=== PATIENT | female | born 1985 | race Caucasian/White ===

== ENCOUNTER 2021-11-04 15:38 | Outpatient (CLI) | payer MEDICAID, SELFPAY ==
--- NOTE | 2021-11-04 16:11 | US_ITS ---
WS: [id number] ULTRASOUND OB COMPLETE TECHNIQUE: Complete ultrasound. CLINICAL INFORMATION: SUPERVISION OF WITH INSUFFICIENT CARE COMPARISON: Cervix measures 5.8 cm FINDINGS: Single interuterine gestation is identified with cephalic presentation. Placenta is posterior fundal. Placenta grade 0. Normal amniotic fluid volume. cardiac activity: 144 BPM. AGA: 28w5d DYLON by ultrasound: 01/22/2022 Estimated weight: 1296 g., %. BDP: 6.9 cm = 27w5d HC: 27.0 cm = 29w3d AC: 24.6 cm = 28w6d FEMUR LENGTH: 5.5 cm = 29w0d Anatomic survey: Intracranial contents and lateral ventricles not well visualized and appear asymmetr ic. Suggestion of hypoechoic extra-axial fluid collection overlying the LEFT hemisphere measuring up to 15 mm on some images with mass effect on the underlying Parenchyma. Suspected dysgenesis of the un derlying hemisphere. Suggestion of a small amount of fluid in the anterior abdomen. Anatomic survey is otherwise grossly normal. Normal stomach. Kidneys and bladder are normal. Normal 3 vessel cord. Normal 3 vessel cord insertion. Normal 4 chamber heart. Normal spine. Normal posterior fossa and cisterna magna. US/US OB >= 14 weeks fetus [id number] IMPRESSION: 1. Single intrauterine with visualized cardiac activity. AGA 28w5d w ith DYLON 01/22/2022. 2. Placenta is posterior fundal. No evidence of abruption or previa. 3. Lateral ventricles not well visualized and appear asymmetric. Suggestion of hypoechoic extra-axial fluid collection overlying the LEFT hemisphere measurin g up to 15 mm on some images with mass effect on the underlying Parenchyma whic h appears abnormal. Recommend further evaluation with level 2 ultrasound and vt gh-risk medicine evaluation. 4. Small amount of fluid in the anterior abdomen. 5. growth parameters greater than 95th percentile.
== END 2021-11-04 15:39 | disposition home or self-care (01) ==
PROVIDERS: PCP Family Medicine; Visit Provider Family Medicine
DX: O09.30 Supervision of pregnancy with insufficient antenatal care, unspecified trimester (principal); O26.843 Uterine size-date discrepancy, third trimester; Z3A.28 28 weeks gestation of pregnancy
CPT/HCPCS: 76805

== ENCOUNTER 2022-02-13 07:34 | Inpatient (IN) | payer SELFPAY ==
[2022-02-13] VITALS (42 sets, daily range): BP systolic 117–158; BP diastolic 69–92; PULSE 75–102; RESP 16; TEMP 36.1–36.9
[2022-02-13 06:00] LABS: Basophils % 0.2 %; Eosinophils # 0.1 10^3/uL (0.0-0.8); Eosinophils % 0.6 %; Hematocrit 33.8 % (37.0-47.0); Hemoglobin 10.3 g/dL (11.5-15.3); Lymphocytes # 1.3 10^3/uL (0.8-4.8); Mean Corpuscular HGB Conc 30.5 g/dL (30.0-36.0); Mean Corpuscular Hemoglobin 24.1 pg (28.0-34.0); Mean Corpuscular Volume 79.2 fl (81-99); Mean Platelet Volume 11.7 fL (7.4-10.4); Monocytes # 1.1 10^3/uL (0.2-0.9); Monocytes % 6.6 %; Neutrophils # 13.61 10^3/uL (1.8-7.7); Neutrophils % 83.6 %; Nucleated Red Blood Cells % 0 %; Platelet Count 180 10^3/cmm (130-400); Red Blood Count 4.27 10^6/uL (4.1-5.3); Red Cell Distribution Width 16.3 % (12.1-15.1); White Blood Count 16.3 10^3/uL (4.0-10.0)
--- NOTE | 2022-02-13 06:13 | PM.OBGYHP ---
Providers/Chief Complaint Admitting Physician: Ila Calderon DO Primary Care Provider: Tera Daniel Chief Complaint: Delivered at home HPI FIELD STAFF History of Present Illness Marah Welsh is a 36 year old female G6 now P4206 with PMHx methamphetamine abuse, tobacco use, labor and delivery presenting after delivery at home at approx 4:30am. Delivered at 43w1d- poor dating by 3rd trimester US. She reports her contractions started at about 2am today and rapidly intensified. She and significant other tried to find a ride to the hospital, but could not find one and called EMS when contractions intensified. She reports her water broke and then a few minutes later she delivered baby while on the phone with EMS. Reports EMS arrived and delivered placenta in the ambulance. Prior to this morning she reports she had been feeling well. Reports baby has been moving well. Reports tobacco use about 1/2 ppd. Denies any other drug or alcohol use. She admits to some current dizziness. Otherwise she is feeling well. Last ate at 2am when she woke up- had some cereal and ice cream. course significant for very limited care- 1 initial visit at [facility] with Dr. Calderon and 1 [facility] visit. No follow-up after initial visits despite multiple attempts to contact patient for follow-up. US significant for abnormal intracranial contents on initial US- repeat with [facility] showed no intracranial abnormality but incomplete anatomy as well as renal pyelectasis. Repeat US was recommended however patient did not follow-up. Also significant for positive RPR with inconsistent history- reported she knew of prior syphilis infection and was treated twice with series of 3 injections- once treated by [facility] and once with [facility] in [place], [place]. However she also reported to [facility] that she was unsure of treatment. Dating is poor and based on a 3rd trimester US not c/w an unsure LMP. She reports she did not follow-up for care because of transportation issues and a couple times she was hiding out from her whom she is from. This is her first child with FOB and her relationship with FOB is good- they live together in a house in [place] She reports her other children are in foster care. Present Details : 6 Para: 6 Date of Last Menstrual Period: 05/21/21 Calculated Date of Delivery: 02/25/22 Gestational Age Based on Last Menstrual Period: 38 Dating criteria OB: based on 3rd trimester US only (LMP is uncertain and not consistent with 3rd trimester US) care: limited care Ultrasounds: abnormal US findings Abnormal OB US findings: Initial US 11/04/21: SIUP, posterior placenta, normal AFV, intracranial contents not well visualized with lateral ventricle appearance asymmetrical- hypoechoic fluid collection overlying L hemisphere with apparent mass effect, small fluid anterior abdomen EGA 28w5d with DYLON 01/22/22 Repeat US with MFM 11/11/21: Posterior grade 2 placenta, normal JARON, incomplete anatomy visualized however no anatomic abnormalities identified and no soft markers for aneuploidy identified, no appearance of extra-axial fluid collection, renal pyelectasis R kidney 6.6mm, L kidney 6.0mm Labs Blood type OB HPI: A (+) positive Rubella: Immune RPR: Positive (Titer 1:1) GBS: Unknown HBsAG: Negative Other Lab Information: HIV neg Hep C ab negative H/H Ucx negative GC/Chlam negative UDS negative on 11/03/21 Review of Systems Const: Denies: fever(s) or malaise Card: Denies: chest pain or swelling of feet/ankles Resp: Denies: dyspnea or productive cough : Reports: vaginal bleeding Skin/Breast: Reports: sores; Denies: rash or pruritus Medications/Allergies Home Medications Medication Instructions Recorded Confirmed Last Taken Type Tylenol 650 mg PO PRN PRN Mild Pain (Scale 02/13/22 02/13/22 02/12/22 22:00 History Score 1-4) Allergies Allergy/AdvReac Type Severity Reaction Status Date / Time aspirin Allergy ALGY-Difficulty Verified 02/13/22 08:32 Breathing PFSH FIELD STAFF PFSH: Medical History Methamphetamine abuse Tobacco use Surgical History History of tonsillectomy Social History Smoking and tobacco status: current every day smoker Alcohol intake: never Substance/Drug Use: former History History Other History: # 1 Delivery date: 05/25/2006 Weeks Gestation: 32 labor: yes Delivery type: Anesthesia type: local Infant Sex: Male weight: 6lbs 6oz Delivered in [place], [place] Delivery date: 01/31/2008 labor: no Delivery type: Sex: Male weight: 8lbs 11oz Delivered in [place], [place] # 3 Delivery date: 10/30/2009 labor: no Delivery type: Sex: Male weight: 10lbs 13oz Delivered in [place], [place] # 4 Delivery date: 10/10/2012 labor: no Delivery type: Infant Sex: Female weight: 6lbs 9oz Delivered in [place], [place] # 5 Delivery date: 11/09/2015 Weeks Gestation: 32 labor: yes Delivery type: Infant Sex: Male weight: 7lbs 4oz Comments: PROM Delivered in [place], [place] Care DYLON Calculator Estimated Delivery Date Method Current WG Current Estimate 01/22/22 Ultrasound #1 43w 1d Vitals/I&O/Wt Temperature Pulse Rate 83 Respiratory Rate Blood Pressure 130/89 Pulse Oximetry Oxygen Delivery Method Oxygen Flow Rate Fraction of Inspired Oxygen Physical Exam Const: COMMON NORMALS: no acute distress HENMT: TEETH & GINGIVA: Yes poor dentition Resp: COMMON NORMALS: normal respiratory effort and clear to auscultation bilaterally Cardio: COMMON NORMALS: regular rate, regular rhythm, S1 normal heart sound present, S2 normal heart sound present and No murmurs present (Cardio) GI: COMMON NORMALS: Soft to palpation and non-tender : OTHER: uterus firm and at the umbilicus, vaginal exam with bilateral abrasions and midline abrasion periclitoral- all noted to be hemostatic. No tears requiring repair. Extremity: COMMON NORMALS: no calf tenderness and no pedal edema Skin: OTHER: scattered papular lesions with pustular appearance scattered at various stages of healing. No open lesions. No s/sx infection. Data : 02/13/22 05:46 A&P Assessment and plan (1) Vaginal delivery: 36yo presenting after vaginal delivery at home at 43w1d. Vaginal bleeding decreasing, no tears requiring repair. Start IVF, post- pitocin. Routine care after recovery period. Routine vital signs. Regular diet. Encourage ambulation. Formula feeding. CBC, repeat RPR, UDS. financial services intern consult. Repeat hemagram tomorrow AM. Status: Acute (2) Poor patient attendance of care: As above, social work associate consult. Status: Acute (3) Positive urine drug screen: Positive for amphetamines- will send for confirmation. Patient denies recent use. Status: Acute (4) Positive RPR test: Attempt confirmation of treatment for syphilis- patient reports completed treatment. Repeat RPR and titer. Status: Acute Attestations Medical Necessity Statement*: Marah Welsh's hospital stay will be less than 2 midnights for vaginal delivery. Coding Level of Care Code Acute Aluminum Molding Machine Operator for g Fwd Diagnoses Vaginal delivery O80 Poor patient attendance of care O09.30 Positive urine drug screen R82.5 Positive RPR test A53.0
[2022-02-13 06:23] LABS: Amphetamines Screen Urine Positive (Negative); Barbiturates Screen Urine Negative (Negative); Benzodiazepines Screen Urine Negative (Negative); Cocaine Screen Urine Negative (Negative); Opiate Screen Urine Negative (Negative); PCP Screen Urine Negative (Negative); THC Screen Urine Negative (Negative)
--- NOTE | 2022-02-13 08:48 | PC.NURSE ---
EDC of 01/22/22 per [facility] Ultrasound makes baby 43.1weeks EDC of 02/12/22 per [facility] Ultrasound makes baby 40.1weeks Both ultrasounds were >14 weeks
--- NOTE | 2022-02-13 09:04 | PC.NURSE ---
Patient presented with Baby Boy Blaise. Patient reported that she delivered at 0433 at home on phone with EMS. Placenta delivered approx 15 min after baby with EMS present. Arrived to OB unit at 0521.
--- NOTE | 2022-02-13 17:54 | PC.NURSE ---
Lewis Ko, with [facility] Department of Family Services, is at bedside.
--- NOTE | 2022-02-13 18:00 | PC.NURSE ---
DFS at bedside per previous note.
[2022-02-13 18:14] LABS: Hematocrit 27.7 % (37.0-47.0); Hemoglobin 8.5 g/dL (11.5-15.3); Mean Corpuscular HGB Conc 30.7 g/dL (30.0-36.0); Mean Corpuscular Hemoglobin 24.5 pg (28.0-34.0); Mean Corpuscular Volume 79.8 fl (81-99); Mean Platelet Volume 13.1 fL (7.4-10.4); Platelet Count 172 10^3/cmm (130-400); Red Blood Count 3.47 10^6/uL (4.1-5.3); Red Cell Distribution Width 16.4 % (12.1-15.1)
[2022-02-13] MEDS: acetaminophen 325 mg Tablet 650 MG PO (19:53)
[2022-02-13] MEDS: docusate sodium 100 mg Capsule PO (19:53)
[2022-02-14 03:46] VITALS: BP 136/88; PULSE 84
[2022-02-14 10:47] VITALS: BP 135/100; PULSE 100
[2022-02-14 10:58] LABS: Hematocrit 29.4 % (37.0-47.0); Hemoglobin 8.7 g/dL (11.5-15.3); Mean Corpuscular HGB Conc 29.6 g/dL (30.0-36.0); Mean Corpuscular Hemoglobin 23.5 pg (28.0-34.0); Mean Corpuscular Volume 79.2 fl (81-99); Mean Platelet Volume 11.9 fL (7.4-10.4); Platelet Count 196 10^3/cmm (130-400); Red Blood Count 3.71 10^6/uL (4.1-5.3); Red Cell Distribution Width 16.2 % (12.1-15.1); White Blood Count 14.9 10^3/uL (4.0-10.0)
[2022-02-14 11:00] VITALS: RESP 16; TEMP 36.9
[2022-02-14] MEDS: acetaminophen 325 mg Tablet 650 MG PO (11:50)
[2022-02-14 12:00] VITALS: BP 139/91; PULSE 85
--- NOTE | 2022-02-14 12:06 | PM.OBGYDC ---
Discharge Providers RETAIL PRODUCT DEMO SPECIALIST Date of Admission: 02/13/22 07:34 Date of Discharge: 02/14/22 Attending Provider at Admission: Ila Calderon DO Attending Provider at Discharge: Ila Calderon DO Primary Care Provider: Tera Daniel Diagnoses at Discharge Discharge Diagnosis (1) Vaginal delivery: Status: Acute (2) Poor patient attendance of care: Status: Acute (3) Positive urine drug screen: Status: Acute (4) Positive RPR test: Status: Acute Reason for Visit Reason for Visit: Delivered at home Hospital Course Hospital Course Marah Welsh is a 36 year old female G6 now P4206 with PMHx methamphetamine abuse, tobacco use, labor and delivery presenting after delivery at home at approx 4:30am on 02/13/22. Delivered at 43w1d- poor dating by 3rd trimester US. course significant for very limited care- 1 initial visit at [facility] with Dr. Calderon and 1 [facility] visit. No follow-up after initial visits despite multiple attempts to contact patient for follow-up. US significant for abnormal intracranial contents on initial US- repeat with [facility] showed no intracranial abnormality but incomplete anatomy as well as renal pyelectasis. Repeat US was recommended however patient did not follow-up. labs significant for RPR positive- patient reported 2 courses of treatment- confirmed most recent treatment with 3 dose series in 2019 with [facility]. Repeat titer pending at time of discharge. Delivered viable male at home. Bottle formula feeding. Infant initially doing well then with cyanosis and hypoxia <24 HOL- started on CPAP and transferred to [facility]. course was significant for anemia down to Hgb of 8.5 followed by repeat Hgb of 8.7 prior to discharge. Started on iron supplementation to continue at home. Also found to have UDS positive for amphetamines- patient denies recent use. Confirmatory test was sent and pending at time of discharge. [facility] referral was made. Following delivery patient ambulated well, tolerated a normal diet without nausea or vomiting. Pain was controlled on PO medications- Tylenol only, no leg/calf pain, no calf/leg swelling, normal urination, passing gas and normal bowel movements. Vaginal bleeding minimal. control was discussed and patient prefers to research methods prior to starting something. Follow-up planned for 2 and 6 weeks . Warning signs for endometritis, pre-eclampsia, DVT/PE, mastitis were reviewed, discussed additional warning signs including increased vaginal bleeding, worsening abdominal pain. Pelvic rest and activity precautions reviewed as well. She is discharged on 02/14/22 in stable condition. Physical Exam Const: COMMON NORMALS: no acute distress HENMT: TEETH & GINGIVA: Yes poor dentition Resp: COMMON NORMALS: normal respiratory effort and clear to auscultation bilaterally AUSCULTATION: clear to auscultation bilaterally Cardio: COMMON NORMALS: regular rate, regular rhythm, S1 normal heart sound present, S2 normal heart sound present and No murmurs present (Cardio) RATE: regular rate RHYTHM: regular rhythm HEART SOUNDS: S1 normal heart sound present and S2 normal heart sound present GI: COMMON NORMALS: Soft to palpation and non-tender PALPATION: Yes Soft to palpation : OTHER: uterus firm and at the umbilicus Extremity: COMMON NORMALS: no calf tenderness and no pedal edema Skin: OTHER: scattered papular lesions with pustular appearance scattered at various stages of healing. No open lesions. No s/sx infection. History History Other History: # 1 Delivery date: 05/25/2006 Weeks Gestation: 32 labor: yes Delivery type: Anesthesia type: local Sex: Male weight: 6lbs 6oz Delivered in [place], [place] 2 Delivery date: 01/31/2008 labor: no Delivery type: Infant Sex: Male weight: 8lbs 11oz Delivered in [place], [place] 3 Delivery date: 10/30/2009 labor: no Delivery type: Sex: Male weight: 10lbs 13oz Delivered in [place], [place] # 4 Delivery date: 10/10/2012 labor: no Delivery type: Sex: Female weight: 6lbs 9oz Delivered in [place], [place] # 5 Delivery date: 11/09/2015 Weeks Gestation: 32 labor: yes Delivery type: Sex: Male weight: 7lbs 4oz Comments: PROM Delivered in [place], [place] Discharge Data Studies Completed and Pending Pending at discharge Category Date Time Status Amphetamine Confirmation, GC/M Routine Lab 02/13/22 05:59 Received RPR with Reflex to Titer Stat Lab 02/13/22 05:46 Received Laboratory Results WBC 14.9 10^3/uL (4.0-10.0) H 02/14/22 10:30 RBC 3.71 10^6/uL (4.1-5.3) L 02/14/22 10:30 Hgb 8.7 g/dL (11.5-15.3) L 02/14/22 10:30 Hct 29.4 % (37.0-47.0) L 02/14/22 10:30 MCV 79.2 fl (81-99) L 02/14/22 10:30 MCH 23.5 pg (28.0-34.0) L 02/14/22 10:30 MCHC 29.6 g/dL (30.0-36.0) L 02/14/22 10:30 RDW 16.2 % (12.1-15.1) H 02/14/22 10:30 Plt Count 196 10^3/cmm (130-400) 02/14/22 10:30 MPV 11.9 fL (7.4-10.4) H 02/14/22 10:30 Neut % (Auto) 83.6 % 02/13/22 05:46 Lymph % (Auto) 8.0 % 02/13/22 05:46 [place] % (Auto) 6.6 % 02/13/22 05:46 Eos % (Auto) 0.6 % 02/13/22 05:46 Baso % (Auto) 0.2 % 02/13/22 05:46 Neut # (Auto) 13.61 10^3/uL (1.8-7.7) H 02/13/22 05:46 Lymph # (Auto) 1.3 10^3/uL (0.8-4.8) 02/13/22 05:46 [place] # (Auto) 1.1 10^3/uL (0.2-0.9) H 02/13/22 05:46 Eos # (Auto) 0.1 10^3/uL (0.0-0.8) 02/13/22 05:46 Baso # (Auto) 0.0 10^3/uL (0.0-0.1) 02/13/22 05:46 Nucleated RBC % (auto) 0 % 02/13/22 05:46 Nucleated RBCs # 0.0 /100WBC 02/13/22 05:46 Urine Opiates Screen Negative ng/mL (Negative) 02/13/22 05:59 Ur Barbiturates Screen Negative ng/mL (Negative) 02/13/22 05:59 Ur Phencyclidine Scrn Negative ng/mL (Negative) 02/13/22 05:59 Ur Amphetamines Screen Positive ng/mL (Negative) H 02/13/22 05:59 U Benzodiazepines Scrn Negative ng/mL (Negative) 02/13/22 05:59 Urine Cocaine Screen Negative ng/mL (Negative) 02/13/22 05:59 U Marijuana (THC) Screen Negative ng/mL (Negative) 02/13/22 05:59 Vitals Temperature 98.4 F Pulse Rate 85 Respiratory Rate 16 Blood Pressure 139/91 Pulse Oximetry Oxygen Delivery Method Room Air Oxygen Flow Rate Fraction of Inspired Oxygen Discharge Plan Discharge Patient Disposition: Home Condition: Stable Prescriptions: New -U 106.5-1 mg capsule 1 cap PO DAILY Qty: 90 2RF ferrous sulfate 325 mg (65 mg iron) tablet 325 mg PO DAILY Qty: 30 0RF Continued Tylenol 650 mg PO PRN PRN (Reason: Mild Pain (Scale Score 1-4)) Discharge Orders: Discharge Order (Routine); Ordered 02/14/22 Ordered By: Ila Calderon Referrals: Ila Calderon DO [Physician] - 02/28/22 1:15 pm Discharge Diet: Usual diet Discharge Activity: Limit activity as instructed Patient Instructions: Iron Supplements (By mouth), Vitamins (By mouth) (Classic , Basic's ..., Depression (DC), Bleeding (DC), Vaginal Delivery (DC), OB Discharge Report, Opioid Safety, OB Home Care, Abnormal Bleeding Activity Restrictions/Additional Instructions: Pelvic rest for 6 weeks. Follow-up post- at 2 and 6 weeks. Discharge Attestations RETAIL PRODUCT DEMO SPECIALIST Time Spent in Discharge Care*: greater than 30 min Coding Level of Care Code Acute Map Clerk for Chg Fwd Exam Detailed Diagnoses Vaginal delivery O80 Poor patient attendance of care O09.30 Positive urine drug screen R82.5 Positive RPR test A53.0
[2022-02-14 12:17] VITALS: BP 139/91; PULSE 85
[2022-02-14 16:33] LABS: RPR w(Moniotor) w/REFL Titer REACTIVE (NON-REACTIVE)
[2022-02-22 08:12] LABS: Amphetamine negative; Methamphetamine 810 ng/mL; Methylenedioxyamphetamine negative; Methylenedioxyethylamphetamine negative; Methylenedioxymethamphetamine negative
== END 2022-02-14 12:19 | disposition home or self-care (01) | DRG 776 ==
LOC: OPOB 02-14 09:04
PROVIDERS: Admitting Provider Family Medicine; PCP Family Medicine; Visit Provider Family Medicine
DX: Z39.0 Encounter for care and examination of mother immediately after delivery (principal); O99.325 Drug use complicating the puerperium; O98.13 Syphilis complicating the puerperium; F15.90 Other stimulant use, unspecified, uncomplicated; A53.0 Latent syphilis, unspecified as early or late
CPT/HCPCS: 36415; 80306; 80324; 80359; 85025; 85027; 86592; 99211

== ENCOUNTER 2024-06-17 23:19 | Inpatient (IN) | payer SELFPAY ==
[2024-06-17 23:29] VITALS: BP 90/58; PULSE 116; RESP 20; TEMP 36.6; O2SAT 98; BMI 23.0
[2024-06-18] VITALS (16 sets, daily range): BP systolic 90–117; BP diastolic 51–74; PULSE 69–114; RESP 16–25; TEMP 37–37.2; O2SAT 95–98; BMI 22.8
[2024-06-18 00:13] LABS: Basophils # 0.1 10^3/uL (0.0-0.1); Basophils % 0.3 %; Eosinophils % 0.2 %; Hematocrit 42.6 % (36-47); Lymphocytes # 0.9 10^3/uL (0.8-4.8); Mean Corpuscular HGB Conc 33.6 g/dL (30-55); Mean Corpuscular Hemoglobin 29.3 pg (27-33); Mean Corpuscular Volume 87.3 fl (85-98); Mean Platelet Volume 10.5 fL (7.4-10.4); Monocytes # 1.3 10^3/uL (0.2-0.9); Monocytes % 5.3 %; Neutrophils # 21.07 10^3/uL (1.8-7.7); Neutrophils % 88.6 %; Nucleated Red Blood Cells % 0 %; Platelet Count 199 10^3/cmm (157-399); Red Blood Count 4.88 10^6/uL (3.85-5.65); Red Cell Distribution Width 12.7 % (12.1-15.1); White Blood Count 23.78 10^3/uL (3.29-11.43)
[2024-06-18 00:30] LABS: Alanine Aminotransferase 24 U/L (0-33); Albumin Level 3.7 g/dL (3.5-5.2); Alkaline Phosphatase 69 U/L (35-105); Anion Gap 14.8 (5-19); Aspartate Amino Transferase 17 U/L (0-32); Blood Urea Nitrogen 11 mg/dL (6-20); Calcium 9.1 mg/dL (8.5-10.5); Carbon Dioxide 26 mmol/L (22-29); Chloride 91 mmol/L (98-107); Creatinine Clr Calc Pharmacy 96.5153; Globulin 3.9 g/dL (1.3-4.6); Glomerular Filtration Rate 94.7 mL/min (90-130); Glucose 109 mg/dL (65-115); Osmolality Calculated 266 mOsm/kg (285-295); Potassium 3.8 mmol/L (3.5-5.1); Sodium 128 mmol/L (136-145); Total Bilirubin 0.9 mg/dL (0.15-1.2); Total Protein 7.6 g/dL (6.6-8.7)
[2024-06-18 01:05] LABS: Procalcitonin 2.78 ng/mL (0-0.5)
[2024-06-18 01:25] LABS: HCG, Serum Qual Negative (Negative)
[2024-06-18 01:26] LABS: Covid PCR NEGATIVE (Negative); Influenza A NEGATIVE (Negative); Influenza B NEGATIVE (Negative); Respiratory Syncytial Virus Ce NEGATIVE (Negative)
--- NOTE | 2024-06-18 01:36 | XRR_ITS ---
PROCEDURE INFORMATION: Exam: XR Chest Exam date and time: 06/18/2024 1:49 AM Age: 38 years old Clinical indication: Cough and fever and wheezing; Smoker's cough; Additional info: Septic TECHNIQUE: Imaging protocol: Radiologic exam of the chest. Views: 1 view. COMPARISON: No relevant prior studies available. FINDINGS: Lungs: There is hazy airspace opacity in the retrocardiac region Pleural spaces: Unremarkable. No pleural effusion. No pneumothorax. Heart/Mediastinum: Unremarkable. No cardiomegaly. Bones/joints: Unremarkable. XR/XR chest 1V portable [id number] IMPRESSION: Hazy opacity in the retrocardiac region, concerning for pneumonia. Clinical correlation recommended.
--- NOTE | 2024-06-18 01:46 | ED_ITS ---
HPI - Fever 2 General: Chief Complaint: Fever Stated Complaint: Fever\Cough Time Seen by Provider: 06/18/24 01:34 History of Present Illness: Patient presents to the ER after having cough body aches and weakness, she has had a cough for about 4 days she has had fever body aches and weakness for about 2 days. She has been around sick family members. She took Tylenol about an hour ago. Heart rate is 116 bpm. Related Data Home Medications Medication Instructions Recorded Confirmed Tylenol 650 mg PO PRN PRN Mild Pain (Scale 02/13/22 02/13/22 Score 1-4) Previous Rx's Medication Instructions Recorded ferrous sulfate 325 mg (65 mg 325 mg PO DAILY #30 tabs 02/14/22 iron) tablet multivitamin no.51-ferrous 1 cap PO DAILY #90 caps 02/14/22 fumarate 106.5 mg-folic acid 1 mg capsule (-U) Allergies Allergy/AdvReac Type Severity Reaction Status Date / Time aspirin Allergy ALGY-Difficulty Verified 06/17/24 23:34 Breathing Review of Systems 2 General: Reports: 10 or more systems reviewed and unremarkable except in HPI and below PFSH ED 2 PFSH: Medical History Tobacco use Methamphetamine abuse Surgical History History of tonsillectomy Social History Smoking and tobacco/nicotine status: current every day tobacco/nicotine user Alcohol intake: never Substance/Drug Use: former Physical Exam 2 Const: COMMON NORMALS: no acute distress, average body habitus, patient oriented x3, no limitations, healthy appearing, alert and well nourished HENMT: COMMON NORMALS: normocephalic, atraumatic, hearing grossly normal bilaterally, external ears normal, Normal external nose present and moist oral mucous membranes HEAD & SCALP: normocephalic and atraumatic NOSE: Normal external nose present EXTERNAL EAR: Yes external ears normal Neck/C-Spine: COMMON NORMALS: no JVD Chest: COMMONS NORMALS: normal palpation of entire chest wall Resp: COMMON NORMALS: normal respiratory effort, No retractions, No use of accessory muscles and clear to auscultation bilaterally AUSCULTATION: clear to auscultation bilaterally Cardio: COMMON NORMALS: no JVD, regular rhythm, S1 normal heart sound present, S2 normal heart sound present, No clicks present (Cardio) and No murmurs present (Cardio); negative for regular rate (Tachycardic) RATE: abnormal rate (Tachycardic) RHYTHM: regular rhythm HEART SOUNDS: S1 normal heart sound present and S2 normal heart sound present GI: COMMON NORMALS: Normal to inspection, nondistended, normoactive bowel sounds present, Soft to palpation, non-tender, No hepatosplenomegaly present and no masses PALPATION: Yes Soft to palpation and Yes No hepatosplenomegaly present Neuro: COMMON NORMALS: patient oriented x3 SENSORIUM/ORIENTATION: Yes alert Course 2 Vital Signs: Vital signs: Vital Signs Temperature 97.8 F 06/17/24 23:29 Pulse Rate 102 H 06/18/24 04:30 Respiratory Rate 23 H 06/18/24 02:33 Blood Pressure 98/74 06/18/24 04:30 Pulse Oximetry 98 06/18/24 04:30 Oxygen Delivery Me thod Room Air 06/18/24 01:33 MDM - Fever Medical Decision Making Patient's white count 23.78, sodium 128, initial lactic acid 4.0, repeat lactic acid 3.0 after 30 mL/kg fluid bolus and 3.375 g of Zosyn. Chest x-ray showed possible pneumonia in retrocardiac region, CT scan showed definite pneumonia in this area. Patient was discussed with Dr. Brown who agreed to place patient inpatient for further treatment. Medical Records I reviewed the patient's medical records. Lab Data I reviewed the patient's lab results. 06/17/24 23:53 06/17/24 23:53 Radiology Impressions Chest X-Ray 06/18/24 01:36 IMPRESSION: Hazy opacity in the retrocardiac region, concerning for pneumonia. Clinical correlation recommended. Laboratory Results WBC 23.78 10^3/uL (3.29-11.43) H 06/17/24 23:53 RBC 4.88 10^6/uL (3.85-5.65) 06/17/24 23:53 Hgb 14.30 g/dL (11.27-16.99) 06/17/24 23:53 Hct 42.6 % (36-47) 06/17/24 23:53 MCV 87.3 fl (85-98) 06/17/24 23:53 MCH 29.3 pg (27-33) 06/17/24 23:53 MCHC 33.6 g/dL (30-55) 06/17/24 23:53 RDW 12.7 % (12.1-15.1) 06/17/24 23:53 Plt Count 199 10^3/cmm (157-399) 06/17/24 23:53 MPV 10.5 fL (7.4-10.4) H 06/17/24 23:53 Neut % (Auto) 88.6 % 06/17/24 23:53 Lymph % (Auto) 4.0 % 06/17/24 23:53 Guthrie % (Auto) 5.3 % 06/17/24 23:53 Eos % (Auto) 0.2 % 06/17/24 23:53 Baso % (Auto) 0.3 % 06/17/24 23:53 Neut # (Auto) 21.07 10^3/uL (1.8-7.7) H 06/17/24 23:53 Lymph # (Auto) 0.9 10^3/uL (0.8-4.8) 06/17/24 23:53 Guthrie # (Auto) 1.3 10^3/uL (0.2-0.9) H 06/17/24 23:53 Eos # (Auto) 0.0 10^3/uL (0.0-0.8) 06/17/24 23:53 Baso # (Auto) 0.1 10^3/uL (0.0-0.1) 06/17/24 23:53 Nucleated RBC % (auto) 0 % 06/17/24 23:53 Nucleated RBCs # 0.0 /100WBC 06/17/24 23:53 Sodium 128 mmol/L (136-145) L 06/17/24 23:53 Potassium 3.8 mmol/L (3.5-5.1) 06/17/24 23:53 Chloride 91 mmol/L (98-107) L 06/17/24 23:53 Carbon Dioxide 26 mmol/L (22-29) 06/17/24 23:53 Anion Gap 14.8 (5-19) 06/17/24 23:53 BUN 11 mg/dL (6-20) 06/17/24 23:53 Creatinine 0.7 mg/dL (0.5-0.9) 06/17/24 23:53 GFR Calculation 94.7 mL/min (90-130) 06/17/24 23:53 Glucose 109 mg/dL (65-115) 06/17/24 23:53 Calculated Osmolality 266 mOsm/kg (285-295) L 06/17/24 23:53 Lactic Acid 4.0 mmol/L (0.5-2.2) H 06/17/24 23:53 Lactic Acid (Sepsis) 3.0 mmol/L (0.5-2.2) H 06/18/24 02:55 Calcium 9.1 mg/dL (8.5-10.5) 06/17/24 23:53 Total Bilirubin 0.9 mg/dL (0.15-1.2) 06/17/24 23:53 AST 17 U/L (0-32) 06/17/24 23:53 ALT 24 U/L (0-33) 06/17/24 23:53 Alkaline Phosphatase 69 U/L (35-105) 06/17/24 23:53 Total Protein 7.6 g/dL (6.6-8.7) 06/17/24 23:53 Albumin 3.7 g/dL (3.5-5.2) 06/17/24 23:53 Globulin 3.9 g/dL (1.3-4.6) 06/17/24 23:53 Procalcitonin 2.78 ng/mL (0-0.5) H 06/17/24 23:53 HCG, Qual Negative (Negative) 06/17/24 23:53 Urine Color Yellow (Yellow) 06/18/24 01:30 Urine Appearance Clear (CLEAR) 06/18/24 01:30 Urine pH 5.5 (5-7) 06/18/24 01:30 Ur Specific [place] 1.018 (1.005-1.030) 06/18/24 01:30 Urine Protein Trace (Negative) A 06/18/24 01:30 Urine Glucose (UA) Negative (Normal) 06/18/24 01:30 Urine Ketones Negative (Negative) 06/18/24 01:30 Urine Blood Negative (Negative) 06/18/24 01:30 Urine Nitrate Negative (Negative) 06/18/24 01:30 Urine Bilirubin Negative (Negative) 06/18/24 01:30 Urine Urobilinogen 1.0 mg/dL (Negative) 06/18/24 01:30 Ur Leukocyte Esterase Negative (Negative) 06/18/24 01:30 Urine RBC 0-2 /hpf (0-2) 06/18/24 01:30 Urine WBC 0-5 /hpf (0-5) 06/18/24 01:30 Ur Squamous Epith Cells 0-5 /hpf (0-5) 06/18/24 01:30 Amorphous Sediment Not Reportable 06/18/24 01:30 Urine Bacteria None seen /hpf (NONE) 06/18/24 01:30 Hyaline Casts 11.97 /lpf 06/18/24 01:30 Urine Opiates Screen Negative ng/mL (Negative) 06/18/24 01:30 Ur Barbiturates Screen Negative ng/mL (Negative) 06/18/24 01:30 Ur Phencyclidine Scrn Negative ng/mL (Negative) 06/18/24 01:30 Ur Amphetamines Screen Negative ng/mL (Negative) 06/18/24 01:30 U Benzodiazepines Scrn Negative ng/mL (Negative) 06/18/24 01:30 Urine Cocaine Screen Negative ng/mL (Negative) 06/18/24 01:30 U Marijuana (THC) Screen Negative ng/mL (Negative) 06/18/24 01:30 Coronavirus (PCR) Negative (Negative) 06/18/24 00:34 Influenza A (PCR) Negative (Negative) 06/18/24 00:34 Influenza Type B (PCR) Negative (Negative) 06/18/24 00:34 RSV (PCR) Negative (Negative) 06/18/24 00:34 All radiology interpretation(s) finalized by discharge Discharge Plan Discharge Patient Disposition: Admitted As Inpatient Clinical Impression: Pneumonia Qualifiers: Pneumonia type: due to unspecified organism Laterality: left Lung location: l ower lobe of lung Qualified Code(s): J18.9 - Pneumonia, unspecified organism Sepsis Qualifiers: Sepsis type: sepsis due to unspecified organism Sepsis acute organ dysfunction status: without acute organ dysfunction Qualified Code(s): A41.9 - Sepsis, unspecified organism Condition: Stable Coding Level of Care Code 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
[2024-06-18 01:48] LABS: Bilirubin Urine Negative (Negative); Blood Urine Negative (Negative); Glucose Urine UA Negative (Normal); Ketones Urine Negative (Negative); Leukocyte Esterase Urine Negative (Negative); Nitrate Urine Negative (Negative); Protein Urine Trace (Negative); Specific Gravity, Urine 1.018 (1.005-1.030); Urine Appearance Clear (CLEAR); Urine Color Yellow (Yellow); pH Urine 5.5 (5-7)
[2024-06-18 01:52] LABS: Add Urine Microscopic? YES; Bacteria Urine None Seen /hpf; Hyaline Casts Urine 11.97 /lpf; RBC Urine 0-2 /hpf (0-2); Squamous Epithelial Cell Urine 0-5 /hpf (0-5); WBC Urine 0-5 /hpf (0-5)
[2024-06-18] MEDS: piperacillin-tazobactam 3.375 GM in sodium chloride 0.9% (plus) 50 ML IV (01:55)
[2024-06-18] MEDS: LACTATED RINGERS 1769.01 ML IV (01:57)
[2024-06-18 02:07] LABS: UA Slide Review UA Slide Review Perf
[2024-06-18 02:24] LABS: Reflex Lactate Order REFLEX LACTIC ORDERD
--- NOTE | 2024-06-18 03:44 | CTR_ITS ---
PROCEDURE INFORMATION: Exam: CT Chest With Contrast; Diagnostic Exam date and time: 06/18/2024 3:58 AM Age: 38 years old Clinical indication: Fever and nausea; Smoker's cough; Additional info: Leukocytosis, sepsis, weakness, tachycardia TECHNIQUE: Imaging protocol: Diagnostic computed tomography of the chest with contrast. Radiation optimization: All CT scans at this facility use at least one of these dose optimization techniques: automated exposure control; mA and/or kV adjustment per patient size (includes targeted exams where dose is matched to clinical indication); or iterative reconstruction. Contrast material: OMNI 350; Contrast volume: 100 ml; Contrast route: INTRAVENOUS (IV); COMPARISON: CR (CHEST, ) 06/18/2024 1:49 AM RADIATION DOSE METRICS: Total DLP (mGy-cm): 206.1 FINDINGS: Lungs: Left lower lobe consolidation. Pleural spaces: Unremarkable. No pneumothorax. No pleural effusion. Heart: Unremarkable. No cardiomegaly. No pericardial effusion. Lymph nodes: Unremarkable. No enlarged lymph nodes. Vasculature: Unremarkable. No aortic aneurysm. Bones/joints: Unremarkable. No acute fracture. Soft tissues: Unremarkable. PROCEDURE INFORMATION: Exam: CT Abdomen And Pelvis With Contrast Exam date and time: 06/18/2024 3:58 AM Age: 38 years old Clinical indication: Fever and nausea; Smoker's cough; Additional info: Leukocytosis, sepsis, weakness, tachycardia TECHNIQUE: Imaging protocol: Computed tomography of the abdomen and pelvis with contrast. Radiation optimization: All CT scans at this facility use at least one of these dose optimization techniques: automated exposure control; mA and/or kV adjustment per patient size (includes targeted exams where dose is matched to clinical indication); or iterative reconstruction. Contrast material: OMNI 350; Contrast volume: 100 ml; Contrast route: INTRAVENOUS (IV); COMPARISON: US OB >= 14 weeks fetus [id number] 11/04/2021 4:16 RADIATION DOSE METRICS: Total DLP (mGy-cm): 371 FINDINGS: Lungs: Lung bases are clear as visualized. Heart: Base of heart is unremarkable as visualized. Liver: Normal. No mass. Gallbladder and biliary ducts: Cholelithiasis. Mildly prominent gallbladder. Pancreas: Normal. No ductal dilation. Spleen: Normal. No splenomegaly. Adrenal glands: Normal. No mass. Kidneys and ureters: Bilateral renal cortical hypodensities too small to characterize by modality, statistically likely to represent benign findings. Stomach and bowel: [id number] colonic stool burden. Appendix: No evidence of appendicitis. Intraperitoneal space: Unremarkable. No free air. No significant fluid collection. Vasculature: Unremarkable. No abdominal aortic aneurysm. Lymph nodes: Unremarkable. No enlarged lymph nodes. Urinary bladder: Unremarkable as visualized. Reproductive: Unremarkable as visualized. Bones/joints: Unremarkable. No acute fracture. Soft tissues: Unremarkable. CT/CT chest abdpel w/*[id number] IMPRESSION: Left lower lobe consolidation concerning for pneumonia. IMPRESSION: Cholelithiasis in the setting of prominent gallbladder. Recommend right upper quadrant ultrasound for further assessment, clinically correlate with biliary dysfunction. COMMENTS: Consistent with the [employer]'s Incidental Findings Committee white paper (J Am Sherrie Radiol 2018): Any incidental renal lesion less than 1 cm or classified as too small to characterize, or any incidental cystic renal lesion characterized as simple-appearing, is likely benign. No follow-up imaging is recommended for these lesions per consensus recommendations based on imaging criteria.
[2024-06-18 04:01] LABS: Amphetamines Screen Urine Negative (Negative); Barbiturates Screen Urine Negative (Negative); Benzodiazepines Screen Urine Negative (Negative); Cocaine Screen Urine Negative (Negative); Opiate Screen Urine Negative (Negative); PCP Screen Urine Negative (Negative); THC Screen Urine Negative (Negative)
[2024-06-18] MEDS: iohexol 350 mg/mL 500 mL Btl (per mL) IV (04:01)
--- NOTE | 2024-06-18 04:55 | P.HP_ITS ---
Providers/Chief Complaint 2 Chief Complaint: Fever\Cough History of Present Illness Marah Welsh is a 38 year old female with a past medical history significant for tobacco use disorder and methamphetamine use disorder who presents to the emergency department with fevers, chills, and cough x 3 days. She endorses associated generalized weakness and fatigue. Exertion worsens symptoms. She reports she took Tylenol prior to presentation. Denies other alleviating or aggravating factors. She describes her cough is productive. She does endorse recent sick contacts. Reports she is active tobacco smoker but has not smoked in a couple of days to her due to her symptomatology. In the emergency department, patient was found to be tachycardic and tachypneic. Labs reveal marked leukocytosis, hypotonic hyponatremia, lactic acidosis, elevated procalcitonin and negative RSV/COVID/flu swab. Imaging showed hazy capacity retrocardiac region on plain film per radiology read. CT chest abdomen pelvis obtained with radiology read pending. Per my read there is significant dense pneumonia in the left lung, mostly retrocardiac. Patient does endorse a history of childhood pneumonia. Review of Systems 2 Narrative: A complete review of systems was obtained and is negative except as stated in HPI. Medications/Allergies Home Medications Medication Instructions Recorded Confirmed Last Taken Type Tylenol 650 mg PO PRN PRN Mild Pain (Scale 02/13/22 02/13/22 02/12/22 22:00 History Score 1-4) ferrous sulfate 325 mg (65 mg 325 mg PO DAILY #30 tabs 02/14/22 Unknown Rx iron) tablet multivitamin no.51-ferrous 1 cap PO DAILY #90 caps 02/14/22 Unknown Rx fumarate 106.5 mg-folic acid 1 mg capsule (-U) Allergies Allergy/AdvReac Type Severity Reaction Status Date / Time aspirin Allergy ALGY-Difficulty Verified 06/17/24 23:34 Breathing PFSH Acute 2 PFSH: Medical History (Updated 06/18/24 @ 05:17 by Tera Brown MD) Positive urine drug screen Poor patient attendance of care Vaginal delivery Tobacco use Methamphetamine abuse Surgical History History of tonsillectomy Family History Mother Cervical cancer Social History Smoking and tobacco/nicotine status: current every day tobacco/nicotine user Alcohol intake: never Substance/Drug Use: former Vitals/I&O/Wt Last Vital Signs Temp 97.8 F 06/17/24 23:29 Pulse 102 H 06/18/24 04:30 Resp 23 H 06/18/24 02:33 BP 98/74 06/18/24 04:30 Pulse Ox 98 06/18/24 04:30 O2 Del Method Room Air 06/18/24 01:33 Weight last 48 hrs Weight 58.967 kg Physical Exam 2 Narrative: General: Patient is awake ill-appearing. Head: Normocephalic. Atraumatic. EOM intact. Poor dentition. Dry mucous membranes. Neck: No JVD. Cardiovascular: No gallops. No murmurs. No peripheral edema. Regular rhythm. Tachycardic. Lungs: Productive cough present on exam. Faint rhonchi in left lung. Tachypneic. Conversational dyspnea. Skin: No jaundice. No rashes. Abdomen: Normal bowel sounds, abdomen soft and nontender. Genito Urinary: Genital exam not performed since complaints not related. Rectal: Rectal exam not performed since no symptoms indicated blood loss. Extremities: No cyanosis or clubbing. Musculoskeletal: No swollen or erythematous joints. Neurological: Moves all 4 extremities. No myoclonus. Data 06/17/24 23:53 06/17/24 23:53 Micro: Microbiology 06/18/24 01:39 Blood Culture - Preliminary Blood SPECIMEN COLLECTED 06/18/24 01:42 Blood Culture - Preliminary Blood SPECIMEN COLLECTED A&P Assessment and plan (1) Sepsis: Sepsis secondary to left-sided community acquired pneumonia with lactic acidosis Blood cultures x 2 Status post sepsis bolus of IV fluids in ED Telemetry Strict I's and O's Procalcitonin 2.78 Bacterial antigens and sputum culture ordered Start cefepime Start vancomycin, pharmacy to dose MRSA nasal screening requested Qualifiers: Sepsis acute organ dysfunction status: without acute organ dysfunction Sepsis type: sepsis due to unspecified organism Qualified Code(s): A41.9 - Sepsis, unspecified organism (2) Community acquired pneumonia: Workup and treatment as above (3) Hyponatremia: Hypovolemic hyponatremia secondary to sepsis Status post IV fluid resuscitation ED Encourage oral intake Repeat labs in a.m. (4) Lactic acidosis: Lactic acidosis secondary to sepsis Treat underlying sepsis IV fluids and antibiotics as noted above Trend lactate (5) Tobacco use: Patient reports she quit swelling about 2 days ago due to acute illness We discussed smoking cessation counseling for 3 minutes She appears to be in the precontemplation stage Patient declines nicotine replacement therapy at this time Plan DVT prophylaxis: Lovenox CODE STATUS: Full code Attestations 2 Medical Necessity Statement*: The patient presents with multiple symptoms, found to have sepsis with community-acquired pneumonia with expected hospitalization to cross 2 midnights for which she will be placed to inpatient status for blood culture surveillance, IV antibiotics, IV fluids telemetry, and supportive care. Coding Level of Care Code Acute Code for [facility] Fwd Diagnoses Sepsis A41.9 Sepsis acute organ dysfunction status: without acute organ dysfunction Sepsis type: sepsis due to unspecified organism Community acquired pneumonia J18.9 Hyponatremia E87.1 Lactic acidosis E87.20 Tobacco use Z72.0
[2024-06-18] MEDS: cefepime 2,000 mg SDV 2000 MG IVP ×3 (05:21→22:02)
--- NOTE | 2024-06-18 05:22 | USR_ITS ---
PROCEDURE INFORMATION: Exam: US Abdomen; Limited Exam date and time: 06/18/2024 5:48 AM Age: 38 years old Clinical indication: Abnormal findings; Abnormal radiologic finding of the abdomen; Radiologic exam and body structure: CT; Additional info: Abnormal CT imaging of gb TECHNIQUE: Imaging protocol: Real time ultrasound of the abdomen with image documentation. Limited exam focused on the region of clinical interest. COMPARISON: CT chest abdpel w/*[id number] 06/18/2024 3:58 AM FINDINGS: Liver: Visualized liver is unremarkable. Gallbladder: Multiple gallstones. No inflammatory change. No wall thickening. Biliary ducts: Normal caliber of the common biliary duct. Pancreas: Cursory reviews of the pancreas appear unremarkable. Right kidney: Visualized right kidneys unremarkable. Aorta: Cursory reviews of the aorta are unremarkable. Portal venous: Portal vein is patent. US/US gall bladder [id number] IMPRESSION: Cholelithiasis without convincing evidence for cholecystitis.
[2024-06-18] MEDS: acetaminophen 325 mg Tablet 650 MG PO ×3 (05:33→18:01)
[2024-06-18 05:46] LABS: C Reactive Protein 248.6 mg/L (0.0-4.9)
[2024-06-18 06:49] LABS: MRSA PCR OZH (swab) NOT DETECTED (Not Detecte)
--- NOTE | 2024-06-18 11:47 | PC.NURSE ---
PT REQUESTED FOR BOYFRIEND TRISH TO BE NOTIFIED OF ANY UPDATES D/T HER NOT HAVING A CELL PHONE; [phone].
--- NOTE | 2024-06-18 16:09 | P.PN_ITS ---
Subjective 2 Subjective: All patient feeling much better this afternoon. She remains tired and overall weak but feeling better trying to howe off any further fever or bodyaches Please note the patient has been clean for 2-1/2 months from methamphetamines. Vitals/I&O/Wt Last Vital Signs Temp 98.9 F 06/18/24 13:11 Pulse 86 06/18/24 15:32 Resp 17 06/18/24 11:17 BP 107/55 06/18/24 15:32 Pulse Ox 97 06/18/24 15:32 O2 Del Method Room Air 06/18/24 15:19 06/18/24 06/18/24 06/18/24 06:59 14:59 22:59 Intake Total 1818.1818. Balance 1818. Weight last 48 hrs Weight 61.235 kg Weight 58.967 kg Physical Exam 2 Narrative: Mild to moderately ill-appearing white female in mild distress. Patient has multiple hypopigmented areas over her arms related to prior drug use no signs of infection no rash Neuro alert and oriented to person place time and situation patient is nonfocal HEENT head is normocephalic atraumatic pupils reactive to light and accommodation extraocular muscles are intact there is no scleral icterus Patient has severely poor dentition as would be expected from methamphetamine abuse Neck is supple no JVD carotid bruits or lymphadenopathy Heart is regular normal S1-S2 without murmurs clicks gallops or rubs Lungs are diminished throughout worse on the left no specific rhonchi auscultated Abdomen flat soft nontender nondistended positive bowel sounds no hepatosplenomegaly Extremities no clubbing cyanosis or edema Back no scoliosis or kyphosis no CVA tenderness Psych mood and affect are appropriate Data 06/17/24 23:53 06/17/24 23:53 Micro: Microbiology 06/18/24 01:30 Bacterial Antigens - Final Urine,Clean Catch 06/18/24 01:39 Blood Culture - Preliminary Blood SPECIMEN COLLECTED 06/18/24 01:42 Blood Culture - Preliminary Blood SPECIMEN COLLECTED A&P Assessment and plan (1) Sepsis: Sepsis secondary to left-sided community acquired pneumonia with lactic acidosis Follow-up on blood cultures when available Continue IV fluids Procalcitonin 2.78 Bacterial antigens and sputum culture ordered Continue cefepime and vancomycin for now. Plan to de-escalate quickly MRSA nasal screening requested Qualifiers: Sepsis acute organ dysfunction status: without acute organ dysfunction Sepsis type: sepsis due to unspecified organism Qualified Code(s): A41.9 - Sepsis, unspecified organism (2) Community acquired pneumonia: Workup and treatment as above (3) Hyponatremia: Hypovolemic hyponatremia secondary to sepsis Continue with IV hydration Encourage oral intake Follow chemistries (4) Lactic acidosis: Lactic acidosis secondary to sepsis Treat underlying sepsis IV fluids and antibiotics as noted above (5) Tobacco use: Patient reports she quit smoking about 2 days ago due to acute illness Plan DVT prophylaxis: Lovenox CODE STATUS: Full code Attestations 2 Medical Necessity Statement*: The patient presents with multiple symptoms, found to have sepsis with community-acquired pneumonia with expected hospitalization to cross 2 midnights for which she will be placed to inpatient status for blood culture surveillance, IV antibiotics, IV fluids telemetry, and supportive care. Coding Level of Care Code Acute Code for [facility] Diagnoses Sepsis A41.9 Sepsis acute organ dysfunction status: without acute organ dysfunction Sepsis type: sepsis due to unspecified organism Community acquired pneumonia J18.9 Hyponatremia E87.1 Lactic acidosis E87.20 Tobacco use Z72.0
[2024-06-18] MEDS: sodium chloride 0.9% 1,000 ML 100 ML IV (18:03)
[2024-06-18] MEDS: ipratropium-albuterol 3 mL Neb INHALATION (20:46)
[2024-06-18] MEDS: ibuprofen 600 mg Tablet PO (22:02)
[2024-06-18] MEDS: enoxaparin 40 mg/0.4 mL Syringe SUBCUT (22:02)
[2024-06-19] VITALS (8 sets, daily range): BP systolic 91–107; BP diastolic 53–69; PULSE 62–84; RESP 15–18; TEMP 36.4–36.6; O2SAT 98–100
[2024-06-19] MEDS: ipratropium-albuterol 3 mL Neb INHALATION ×3 (00:32→07:39)
[2024-06-19] MEDS: sodium chloride 0.9% 1,000 ML 100 ML IV (04:13)
[2024-06-19 05:16] LABS: Basophils % 0.4 %; Eosinophils # 0.1 10^3/uL (0.0-0.8); Eosinophils % 1.3 %; Hematocrit 34.6 % (36-47); Lymphocytes # 1.2 10^3/uL (0.8-4.8); Lymphocytes % 12.5 %; Mean Corpuscular HGB Conc 32.1 g/dL (30-55); Mean Corpuscular Hemoglobin 29.3 pg (27-33); Mean Corpuscular Volume 91.3 fl (85-98); Mean Platelet Volume 10.5 fL (7.4-10.4); Monocytes # 0.8 10^3/uL (0.2-0.9); Monocytes % 8.2 %; Neutrophils # 7.61 10^3/uL (1.8-7.7); Neutrophils % 76.7 %; Nucleated Red Blood Cells % 0 %; Platelet Count 169 10^3/cmm (157-399); Red Blood Count 3.79 10^6/uL (3.85-5.65); Red Cell Distribution Width 12.9 % (12.1-15.1); White Blood Count 9.92 10^3/uL (3.29-11.43)
[2024-06-19 05:41] LABS: Anion Gap 11.4 (5-19); Blood Urea Nitrogen 9 mg/dL (6-20); Calcium 8.6 mg/dL (8.5-10.5); Carbon Dioxide 27 mmol/L (22-29); Chloride 103 mmol/L (98-107); Creatinine Clr Calc Pharmacy 170.0718; Glomerular Filtration Rate 180.6 mL/min (90-130); Glucose 90 mg/dL (65-115); Magnesium 1.9 mg/dL (1.7-2.3); Osmolality Calculated 284 mOsm/kg (285-295); Phosphorus 1.7 mg/dL (2.5-4.5); Potassium 3.4 mmol/L (3.5-5.1); Sodium 138 mmol/L (136-145)
[2024-06-19] MEDS: cefepime 2,000 mg SDV 2000 MG IVP (06:40)
[2024-06-19] MEDS: magnesium sulfate premix 1 GM/100 ML PIGGYBACK IV (08:48)
[2024-06-19] MEDS: ibuprofen 600 mg Tablet PO (08:49)
--- NOTE | 2024-06-19 09:21 | PC.CHAP ---
Pastoral Care Encounter/Spiritual Assessment Type of Contact [] Declined dry plasterer visit [] Patient/Family/Request visit [] Outpatient visit [] Follow-up visit [] Physician referral [] Code/Alert [x] Routine visit [] Staff referral [] Actively dying [] Patient sleeping [] Family support [] [] Out of room [] Palliative care [] [] Receiving care in room [] Pre-surgical visit [] Trauma [] Long length of stay [] ICU visit [] Other: Relational/Emotional Strength [x] Patient feels connected with others/family/visitors/staff [] Distress [] Loneliness/isolation [] Abandonment Spirituality of Patient [x] Person of Marlyn [] Attends Tenriism of their Marlyn [x] Believes in Prayer [] Reads Bible or Jewish materials [] There are Spiritual issues to be addressed 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 [x] Prayer [x] Active listening [x] Non-anxious presence [x] Spiritual/emotional support [] Crisis/trauma care [] Spiritual counseling [] Bereavement support [] Provided bereavement packet [] Provided Bible/devotional materials [] Provided toy/stuffed animal, coloring book to patient or family member [] Provided Communion [] Anointing/[place] [] Salvation [] Completed spiritual assessment [] Other: Impact on Illness or Injury [] Angry [] Fearful [] Anxious [] Often cries [] Exhaustion [] Unable to work [] Unable to attend zoroastrian [] Unable to walk/stand [] Unable to read [] Unable to drive [] Unable to eat/drink [] Unable to sleep [] Unable to be with family [] Patient intubated [] Other: Summary Time spent with patient 10 min
[2024-06-19] MEDS: potassium phosphate (mEq K) 40 MEQ in sodium chloride 0.9% (100 ml) 100 ML 27.25 MEQ IV (10:31)
--- NOTE | 2024-06-19 10:37 | PM.DCS ---
Discharge Providers Date of Admission: 06/18/24 05:05 Date of Discharge: June 19, 2024 Attending Provider at Admission: Tera Brown MD Attending Provider at Discharge: Kyle Hightower Diagnoses at Discharge Discharge Diagnosis (1) Sepsis: Status: Acute Qualifiers: Sepsis acute organ dysfunction status: without acute organ dysfunction Sepsis type: sepsis due to unspecified organism Qualified Code(s): A41.9 - Sepsis, unspecified organism (2) Community acquired pneumonia: Status: Acute (3) Hyponatremia: Status: Acute (4) Lactic acidosis: Status: Acute (5) Tobacco use: Status: Acute Reason for Visit Reason for Visit: Fever\Cough Hospital Course Hospital Course 48-year-old lady with history of smoking, methamphetamine use, was admitted after presenting with fever, cough, chills of 3 days duration, generalized weakness and fatigue, on presentation with leukocytosis up to 24,000, sinus tachycardia 110-116, tachypnea 23-25, productive cough, chest x-ray with hazy opacity in retrocardiac region concerning for pneumonia, CT chest abdomen pelvis with left lower lobe consolidation concerning for pneumonia, incidentally noted cholelithiasis in the setting of prominent gallbladder. Gallbladder ultrasound confirming cholelithiasis without convincing evidence of cholecystitis. Liver parameters without elevation. Without upper quadrant pain. She was treated for community-acquired pneumonia. Blood cultures were collected so far remaining negative. She received cefepime with significant improvement with resolution of leukocytosis, tachycardia, tachypnea, fever. Subjectively feeling better, still having some productive cough. Flutter valve is requested for her. She will complete antibiotic course for community-acquired pneumonia with cefdinir and azithromycin. account services analyst are seeing her with regards to living situation as well as setting up with primary care provider and insurance consideration. As per discussion with her, she knows to seek medical attention in case of any worsening or new concerning symptoms. Physical Exam Const: COMMON NORMALS: patient oriented x3 and alert GENERAL APPEARANCE: cooperative ORIENTATION/CONSCIOUSNESS: Yes awake HENMT: COMMON NORMALS: oropharynx normal Neck/C-Spine: COMMON NORMALS: no JVD Resp: COMMON NORMALS: normal respiratory effort and clear to auscultation bilaterally AUSCULTATION: clear to auscultation bilaterally Cardio: COMMON NORMALS: no JVD, regular rhythm, S1 normal heart sound present, S2 normal heart sound present and No murmurs present (Cardio) RHYTHM: regular rhythm HEART SOUNDS: S1 normal heart sound present and S2 normal heart sound present GI: COMMON NORMALS: Normal to inspection, nondistended, normoactive bowel sounds present, Soft to palpation and non-tender PALPATION: Yes Soft to palpation Extremity: COMMON NORMALS: no joint enlargement and no pedal edema Neuro: COMMON NORMALS: patient oriented x3 and moves all extremities SENSORIUM/ORIENTATION: Yes alert Skin: COMMON NORMALS: no rashes or lesions noted GENERAL SKIN EXAM: no rashes or lesions noted Discharge Data Studies Completed and Pending Completed Studies During Hospitalization Category Date Time Status CT chest abdomen pelvis [CT chest abdpel w/*[id number] Cat Scan 06/18/24 03:44 Completed ] Stat XR chest 1V portable [id number] Stat Exams 06/18/24 01:36 Completed US gall bladder [id number] Stat Ultrasound 06/18/24 05:22 Completed Pending at discharge Category Date Time Status Blood Culture Stat Lab 06/18/24 01:39 Results Sputum Culture and Gram Stain Routine Lab 06/18/24 04:57 Uncollected Radiology Impressions Chest X-Ray 06/18/24 01:36 IMPRESSION: Hazy opacity in the retrocardiac region, concerning for pneumonia. Clinical correlation recommended. Chest/Abdomen/Pelvis CT 06/18/24 03:44 IMPRESSION: Left lower lobe consolidation concerning for pneumonia. IMPRESSION: Cholelithiasis in the setting of prominent gallbladder. Recommend right upper quadrant ultrasound for further assessment, clinically correlate with biliary dysfunction. COMMENTS: Consistent with the [employer]'s Incidental Findings Committee white paper (J Am Sherrie Radiol 2018): Any incidental renal lesion less than 1 cm or classified as too small to characterize, or any incidental cystic renal lesion characterized as simple-appearing, is likely benign. No follow-up imaging is recommended for these lesions per consensus recommendations based on imaging criteria. Gallbladder Ultrasound 06/18/24 05:22 IMPRESSION: Cholelithiasis without convincing evidence for cholecystitis. Laboratory Results WBC 9.92 10^3/uL (3.29-11.43) 06/19/24 04:30 RBC 3.79 10^6/uL (3.85-5.65) L 06/19/24 04:30 Hgb 11.10 g/dL (11.27-16.99) L 06/19/24 04:30 Hct 34.6 % (36-47) L 06/19/24 04:30 MCV 91.3 fl (85-98) 06/19/24 04:30 MCH 29.3 pg (27-33) 06/19/24 04:30 MCHC 32.1 g/dL (30-55) 06/19/24 04:30 RDW 12.9 % (12.1-15.1) 06/19/24 04:30 Plt Count 169 10^3/cmm (157-399) 06/19/24 04:30 MPV 10.5 fL (7.4-10.4) H 06/19/24 04:30 Neut % (Auto) 76.7 % 06/19/24 04:30 Lymph % (Auto) 12.5 % 06/19/24 04:30 [place] % (Auto) 8.2 % 06/19/24 04:30 Eos % (Auto) 1.3 % 06/19/24 04:30 Baso % (Auto) 0.4 % 06/19/24 04:30 Neut # (Auto) 7.61 10^3/uL (1.8-7.7) 06/19/24 04:30 Lymph # (Auto) 1.2 10^3/uL (0.8-4.8) 06/19/24 04:30 [place] # (Auto) 0.8 10^3/uL (0.2-0.9) 06/19/24 04:30 Eos # (Auto) 0.1 10^3/uL (0.0-0.8) 06/19/24 04:30 Baso # (Auto) 0.0 10^3/uL (0.0-0.1) 06/19/24 04:30 Nucleated RBC % (auto) 0 % 06/19/24 04:30 Nucleated RBCs # 0.0 /100WBC 06/19/24 04:30 Sodium 138 mmol/L (136-145) 06/19/24 04:30 Potassium 3.4 mmol/L (3.5-5.1) L 06/19/24 04:30 Chloride 103 mmol/L (98-107) 06/19/24 04:30 Carbon Dioxide 27 mmol/L (22-29) 06/19/24 04:30 Anion Gap 11.4 (5-19) 06/19/24 04:30 BUN 9 mg/dL (6-20) 06/19/24 04:30 Creatinine 0.4 mg/dL (0.5-0.9) L 06/19/24 04:30 GFR Calculation 180.6 mL/min (90-130) H 06/19/24 04:30 Glucose 90 mg/dL (65-115) 06/19/24 04:30 Calculated Osmolality 284 mOsm/kg (285-295) L 06/19/24 04:30 Lactic Acid 4.0 mmol/L (0.5-2.2) H 06/17/24 23:53 Lactic Acid (Sepsis) 3.0 mmol/L (0.5-2.2) H 06/18/24 02:55 Calcium 8.6 mg/dL (8.5-10.5) 06/19/24 04:30 Phosphorus 1.7 mg/dL (2.5-4.5) L 06/19/24 04:30 Magnesium 1.9 mg/dL (1.7-2.3) 06/19/24 04:30 Total Bilirubin 0.9 mg/dL (0.15-1.2) 06/17/24 23:53 AST 17 U/L (0-32) 06/17/24 23:53 ALT 24 U/L (0-33) 06/17/24 23:53 Alkaline Phosphatase 69 U/L (35-105) 06/17/24 23:53 C-Reactive Protein 248.6 mg/L (0.0-4.9) H 06/17/24 23:53 Total Protein 7.6 g/dL (6.6-8.7) 06/17/24 23:53 Albumin 3.7 g/dL (3.5-5.2) 06/17/24 23:53 Globulin 3.9 g/dL (1.3-4.6) 06/17/24 23:53 Procalcitonin 2.78 ng/mL (0-0.5) H 06/17/24 23:53 Procalcitonin Cancelled 06/17/24 23:53 HCG, Qual Negative (Negative) 06/17/24 23:53 Urine Color Yellow (Yellow) 06/18/24 01:30 Urine Appearance Clear (CLEAR) 06/18/24 01:30 Urine pH 5.5 (5-7) 06/18/24 01:30 Ur Specific [place] 1.018 (1.005-1.030) 06/18/24 01:30 Urine Protein Trace (Negative) A 06/18/24 01:30 Urine Glucose (UA) Negative (Normal) 06/18/24 01:30 Urine Ketones Negative (Negative) 06/18/24 01:30 Urine Blood Negative (Negative) 06/18/24 01:30 Urine Nitrate Negative (Negative) 06/18/24 01:30 Urine Bilirubin Negative (Negative) 06/18/24 01:30 Urine Urobilinogen 1.0 mg/dL (Negative) 06/18/24 01:30 Ur Leukocyte Esterase Negative (Negative) 06/18/24 01:30 Urine RBC 0-2 /hpf (0-2) 06/18/24 01:30 Urine WBC 0-5 /hpf (0-5) 06/18/24 01:30 Ur Squamous Epith Cells 0-5 /hpf (0-5) 06/18/24 01:30 Amorphous Sediment Not Reportable 06/18/24 01:30 Urine Bacteria None seen /hpf (NONE) 06/18/24 01:30 Hyaline Casts 11.97 /lpf 06/18/24 01:30 Nasal MRSA (PCR) Not detected (Not Detecte) 06/18/24 05:29 Urine Opiates Screen Negative ng/mL (Negative) 06/18/24 01:30 Ur Barbiturates Screen Negative ng/mL (Negative) 06/18/24 01:30 Ur Phencyclidine Scrn Negative ng/mL (Negative) 06/18/24 01:30 Ur Amphetamines Screen Negative ng/mL (Negative) 06/18/24 01:30 U Benzodiazepines Scrn Negative ng/mL (Negative) 06/18/24 01:30 Urine Cocaine Screen Negative ng/mL (Negative) 06/18/24 01:30 U Marijuana (THC) Screen Negative ng/mL (Negative) 06/18/24 01:30 Coronavirus (PCR) Negative (Negative) 06/18/24 00:34 Influenza A (PCR) Negative (Negative) 06/18/24 00:34 Influenza Type B (PCR) Negative (Negative) 06/18/24 00:34 RSV (PCR) Negative (Negative) 06/18/24 00:34 Vitals Last Vital Signs Temp 97.5 F L 06/19/24 07:24 Pulse 78 06/19/24 07:40 Resp 18 06/19/24 07:40 BP 107/69 06/19/24 07:24 Pulse Ox 98 06/19/24 07:40 O2 Del Method Room Air 06/19/24 07:40 Discharge Plan Discharge Patient Disposition: Home Condition: Stable Prescriptions: New azithromycin 250 mg tablet See Rx Instructions .ROUTE .COMPLEX Qty: 6 0RF Rx Instructions: For 500 mg dose pack: take 500 mg once daily for 3 days cefdinir 300 mg capsule 300 mg PO BID 7 Days Qty: 14 0RF No Action No Known Home Medications Discharge Orders: Discharge Order (Routine); Ordered 06/19/24 Ordered By: Kyle Hightower Referrals: Lidia Hanley NP [Nurse Practitioner] - 06/26/24 2:30 pm Discharge Diet: Low Cholesterol and Low Fat Discharge Activity: Increase activity as tolerated Patient Instructions: Azithromycin (By mouth), Cefdinir (By mouth), Gallstones (GEN), Community Acquired Pneumonia (GEN) Activity Restrictions/Additional Instructions: Please continue to abstain from smoking. Please abstain from any methamphetamine or any other substance use. Complete antibiotic course for treatment of pneumonia. Follow-up with primary doctor for reassessment, as well as for gallstones. Low sodium level found on presentation has improved. Please have your primary doctor recheck your sodium level. As well as recheck potassium, magnesium and phosphorus which were also lamented here. Seek medical attention in case of any worsening or new concerning symptoms Discharge Attestations Time Spent in Discharge Care*: greater than 30 min Quality Metrics Clinical Quality Measures [ No reported AMI, CVA or VTE this stay] Coding Level of Care Code 87727 Total time (in minutes) for Discharge: 40 Diagnoses Sepsis A41.9 Sepsis acute organ dysfunction status: without acute organ dysfunction Sepsis type: sepsis due to unspecified organism Community acquired pneumonia J18.9 Hyponatremia E87.1 Lactic acidosis E87.20 Tobacco use Z72.0
== END 2024-06-19 14:40 | disposition home or self-care (01) | DRG 871 ==
LOC: ER 06-18 05:08 → ER IP 06-18 05:54 → MEDSURG 06-18 14:53
PROVIDERS: Admitting Provider Internal Medicine; Emergency Provider Emergency Medicine; Visit Provider Internal Medicine
DX: A41.9 Sepsis, unspecified organism (principal); J18.9 Pneumonia, unspecified organism; E87.1 Hypo-osmolality and hyponatremia; E87.20 Acidosis, unspecified; K80.20 Calculus of gallbladder without cholecystitis without obstruction; F17.210 Nicotine dependence, cigarettes, uncomplicated
CPT/HCPCS: 36415; 71045; 71260; 74177; 76705; 80048; 80053; 80306; 81001; 83605; 83735; 84100; 84145; 84703; 85025; 86140; 86403; 87040; 87637; 94640; 94667; 96365; 96372; 96375; 99285; J0692; J1650; J2543; J3475; J7030; J7120

== ENCOUNTER → 2024-06-26 15:03 | Outpatient (BNVA) | payer SELFPAY | DX: J18.9 Pneumonia, unspecified organism (principal) | CPT/HCPCS: 80053; 83735; 85025 ==

== ENCOUNTER 2025-04-02 10:36 | Outpatient (CLI) | payer SELFPAY ==
--- NOTE | 2025-04-02 10:47 | XR_ITS ---
WS: [id number] Exam: XR wrist LT min 3V* [id number] Date/Time of Exam: 04/02/2025 10:48 AM Reason For Exam: left wrist pain DLP: No acute fracture. The joints are preserved. Normal soft tissues. XR/XR wrist LT min 3V* [id number] IMPRESSION: 1. Negative wrist.
== END 2025-04-02 10:37 | disposition home or self-care (01) ==
DX: M25.532 Pain in left wrist (principal)
CPT/HCPCS: 73110